=== PATIENT | male | born 1955 | race Caucasian/White ===

== ENCOUNTER 2016-11-08 07:22 | Day surgery (SDC) | payer MEDICARE, OTHER ==
[~2016-11-08] VITALS: Ht 188 cm; Wt 81.7 kg
[~2016-11-08 07:22] MED LIST: ALLO300T2 PO; BENA20TA PO; ESOM40CA41 PO; KLO1T PO
[2016-11-08] MEDS ORDERED: fentaNYL-PF 50 mCg/mL 2 mL Inj ONE (07:23)
[2016-11-08] MEDS ORDERED: Propofol 10,000 mCg/mL 20 mL Inj ONE (07:23)
[2016-11-08] MEDS ORDERED: fentaNYL-PF 50 mCg/mL 2 mL Inj IVPUSH PRN (07:45)
[2016-11-08] MEDS ORDERED: Sodium Chloride LOK Flush 10 mL Syringe IV PRN (07:45)
[2016-11-08] MEDS ORDERED: 0.9% Sodium Chloride 1,000 ML IV PRN (07:45)
[2016-11-08 07:47] VITALS: BP 141/87; PULSE 57; RESP 16; O2SAT 100
--- NOTE | 2016-11-08 08:32 | PCM.HPANE ---
Patient Data Date of Service: Nov 08, 2016 (0825) Surgeon Admitting Provider: Attending Provider:Mauro Couch MD Primary Care Physician:Cami Acosta DO Other Provider: Reason for Visit Dysphagia Ht/WT & BMI Height (Feet): 6 Height (Inches): 2 Weight (Kilograms): 81.65 Body Mass Index 23.00 Allergies Coded Allergies: No Known Allergies (Unverified , 11/05/16) Diabetes History Hx Diabetes?: No MRSA MRSA: No Medications Hypertension Medication: Yes Home Meds Incl Beta Gudelia: No Reported Medications Esomeprazole Magnesium (Nexium)40 Mg Capsule.dr40 Mg PO DAILY Ref 0 11/05/16 Clonazepam 1 Mg Tablet1 Mg PO BID PRN For Anxiety Ref 0 11/05/16 Benazepril 20 Mg [id number] Mg PO DAILY 11/05/16 Allopurinol 300 Mg [id number] Mg PO DAILY Ref 0 11/05/16 History HEENT History: Positive for:: Dysphagia Hx of Heart Problems?: Yes Cardiovascular History: Positive for:: Hypertension Hx of Respiratory Problem?: No Neurological History: Denies:: CVA Other History/Comments H/O TBI, PTSD Hx of GI Problems?: Yes Gastrointestinal History: Positive for:: Gastroesphageal Reflux Psycho Social History: Positive for:: Anxiety Hx Surgeries?: Yes (back,neck, abdominal, hernia) Hx Any Other Health Problems?: No Hx Alcohol Use: Yes (daily) Stop/Bang Treated for Sleep Apnea?: No Do You Have a CPAP Machine?: No S-Snoring: Do You Snore Loudly: Yes T-Tired: feel tired, fatigued: No O-Obsered: Observed not breath: No P-Blood Pressure: treated: Yes B- Body Mass Index > 35 kg/m2: No A- Age over 50: Yes N- Neck Large Circumference: No G- Gender Male: Yes LAKEISHA Total Score: 4 LAKEISHA Risk Assessment: Low Risk, <3 Yes Risk Assessment Category Category 1A: Patient has history of documented sleep apnea, and HAS NOT received any narcotic, sedative or anesthesia administration during this stay. Category 1B: Patient has history of documented sleep apnea, and HAS received any narcotic , sedative or anesthesia administration during this stay Category 2: Patient has SUSPECTED Obstructive Sleep Apnea, and HAS received any narcotic , sedative or anesthesia administration during this stay. Category 3: Patient has SUSPECTED Obstructive Sleep Apnea and HAS NOT received narcotic, sedative or anesthesia administration during this stay. Category 4: Outpatient in Procedural Areas with known sleep apnea or who screen positive for High Risk via the STOP/BANG questionnaire. Exam Exam Vital Signs Vital Signs Date Time Temp Pulse Resp B/P Pulse Ox O2 Delivery O2 Flow Rate FiO2 11/08/16 07:47 57 16 141/87 100 Room Air General Appearance: Alert, Oriented X3 Lungs: Clear to Auscultation Heart: Exam Unremarkable Plan Impression Patient chart reviewed, patient interviewed and anesthestic plan with risks, benefits, and alternatives discussed, and informed consent obtained. NPO Status: >8HRS ASA Physical Status: ASA2 Mod Systemic Disease Anesthetic Plan: GA Bene/Risks/Altern/Consents: Yes HP Complete Prior to Induction: Yes Mathew Collins MD Nov 08, 2016 08:32
--- NOTE | 2016-11-08 09:09 | PCM.ENDEGD ---
EGD Date of Service: Nov 08, 2016 Physician Mauro Couch MD Pre Procedure Diagnosis: Dysphagia Post Procedure Dx & Findings: Gastritis Procedure Esophagogastroduodenoscopy PROCEDURE IN DETAIL: After proper sedation, Olympus video endoscope was inserted into patient's mouth and esophagus was successfully intubated. Scope introduced esophagus. Esophagus showed normal shiny whitish mucosa consistent with squamous cell component. Z line was intact at 40 cm from the incisors. The GE junction appears smaller probably from the fundoplication. The lumen appeared to be less than 2 mm however the scope easily went through it. The resistance felt. There was no obvious scarring or inflammation. Because he could not see the GE junction very well, we did empirically dilation from 12 to 15 mm . Even at 15 mm, we did not see a mucosal tear indicating successful dilation. I think this is all due to tight Saad. The scope further advanced to the stomach. Stomach showed normal shiny mucosa with normal appearing rugae folds without any ulcer mass erosion. Cardia fundus body antrum pylorus were all visualized. In the proximal fundus and cardia, there were isolated redness and biopsies obtained. Retroflexion was done. It showed fundoplication Stomach was easily inflated and deflatable using air. Scope further events to the distal duodenum. Duodenum revealed normal villous structures with normal appearing folds without any mass ulcer erosion. Impression Fundoplication and dilation attempted within the lumen appeared to be about 2-3 mm in size. However the scope easily went through back and forth. After 15 mm dilation, no mucosal tearing noted. This is indicating the narrowed lumen is due to fundoplication. Gastritis Recommendation Follow up in GI clinic Presedation Assessment Risks and Benefits Informed consent was obtained from the patient after all risks and benefits including but not limited to drug reaction, infection, pain, bleeding, perforation, as well as alternatives were discussed. Patient monitoring Continuous pulse oximetry, cardiac monitoring, blood pressure monitoring, IV access, and oxygen at 2L per nasal cannula. Complications There were no periprocedural complications identified. Post Procedure Plan Post Procedure Recommendations 1. Restrict activities today. 2. Resume normal activities in the morning. 3. Resume medications. 4. GERD behavioral modification: - Avoid fatty, acidic, spicy, large meals - Do not lie down after meals - Do not eat or drink anything for at least 2 1/2 hours before going to bed at night - Discontinue tobacco and alcohol - Decrease or avoid caffeine - Avoid chocolate and mints - Decrease weight - Avoid aspirin and non steroidal anti-inflammatory agents (NSAID) such as Aleve, Advil, Mobic, Naproxen, Ibuprofen, etc 5. Add proton pump inhibitor. Take 30 minutes before 1st meal of the day. 6. Patient informed of normal post procedure side effects as bloating, drowsiness, blood streaking in the stool 7. If gastric biopsy reveal H.pylori, continue with appropriate treatment 8. If small bowel biopsy reveals celiac, continue with appropriate treatment 9. Please don't hesitate to call me with any questions Mauro Couch MD Nov 08, 2016 09:09
[2016-11-08 09:12] VITALS: BP 109/69; PULSE 56; RESP 14; O2SAT 98
--- NOTE | 2016-11-08 09:16 | PCM.ANEP1 ---
Post Anesthesia Phase 1 PACU Phase 1 Assessment Date of Service: Nov 08, 2016 Vital Signs 109/69, 16, 57, 96% Vital Signs Date Time Temp Pulse Resp B/P Pulse Ox O2 Delivery O2 Flow Rate FiO2 11/08/16 07:47 57 16 141/87 100 Room Air Anesthetic Administered: GA Level of Alertness: Awake, talking LONG's with Equal Strength: Yes Pain: No Nausea or Vomiting: No Oxygen Delivery: Room Air Lungs: Clear to Auscultation Dermatome Level: Full Sensation Summary easy sedation. Tolerated well. Mathew Collins MD Nov 08, 2016 09:16
--- NOTE | 2016-11-08 09:16 | PCM.ANEP2 ---
Post Anesthesia Evaluation ASA/CMS Post Anesthesia VS in Patient's Normal Range?: Yes Resp Stable; Airway Patent?: Yes CV Function & Hydration Stable: Yes Mental Status Recovered?: Yes Pain control Satisfactory?: Yes N/V Control Satisfactory?: Yes Mathew Collins MD Nov 08, 2016 09:16
[2016-11-08 09:21] VITALS: BP 127/68; PULSE 55; RESP 14; O2SAT 98
--- NOTE | 2016-11-09 11:10 | PATH ---
SURGICAL PATHOLOGY Attending Physician:Mauro Couch M.D. CASE STATUS: Signed Out PATIENT NAME: FREDDIE TESFAYE PID: [id number] : 1955 DATE COLLECTED:11/08/2016 17:21 SPECIMEN: Gastric, Biopsy CLINICAL HISTORY: 1). GASTRIC BIOPSY FINAL DIAGNOSIS: Gastric Biopsy: Mild chronic gastritis involving fundic mucosa. Negative for evidence of Helicobacter. Negative for intestinal metaplasia. Negative for dysplasia and malignancy. ICD10: K29.70 GROSS DESCRIPTION: The specimen is received in one formalin filled container labeled with the patient's name, sublabeled "gastric" and consists of 2 portions of tissue which aggregate to 0.3 x 0.3 x 0.2 CM. The specimen is entirely submitted in one cassette. 11/08/2016 [facility] ICD-9 CODES: CPT CODES: 1: 40005 Electronically Signed Out Freddie Wolf MD [facility] Pathology [facility] [address], [place] [address] Technical component performed at [facility], [facility] [address], [place], [address]
== END 2016-11-08 23:59 | disposition home or self-care (01) ==
LOC: END 07:22 → EDUNIT# 08:45 → END 23:59
PROVIDERS: ATTEND Internal Medicine
DX: K29.50 Unspecified chronic gastritis without bleeding (principal); I10 Essential (primary) hypertension; K21.9 Gastro-esophageal reflux disease without esophagitis; F43.10 Post-traumatic stress disorder, unspecified